=== PATIENT | female | born 2000 | race Two or more races ===

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

== ENCOUNTER 2023-04-19 20:10 | Emergency (ER) | payer MEDICAID ==
[~2023-04-19] VITALS: Ht 160 cm; Wt 56.8 kg
[2023-04-19 21:07] VITALS: BP 120/85; PULSE 92; RESP 18; TEMP 98.3; O2SAT 100
== END 2023-04-20 00:28 | disposition home or self-care (01) ==
LOC: ER 20:10
DX: R59.1 Generalized enlarged lymph nodes (principal)
CPT/HCPCS: 76536